=== PATIENT | female | born 1995 | race Two or more races ===

== ENCOUNTER 2018-03-25 16:27 | Emergency (ER) | payer OTHER ==
--- NOTE | 2018-03-25 16:56 | EDPHY ---
H & P Stated Complaint: upper respiratory infection, hurts to breathe Time Seen by Provider: 03/25/18 16:55 HPI/ROS: CHIEF COMPLAINT: URI symptoms x5 days. HISTORY OF PRESENT ILLNESS: [ 22-year-old immunocompetent female with no seasonal influenza vaccination complaining of 5 days of productive cough, fever , sore throat, myalgias, dyspnea, chest pain described as pleuritic and tender to palpation anterior sternal border REVIEW OF SYSTEMS: 10 systems reviewed and negative with the exception of the elements mentioned in the history of present illness PAST MEDICAL & SURGICAL HISTORY: no exogenous estrogen use. SOCIAL HISTORY:Nonsmoker. FAMILY HISTORY: no personal or family history of thrombo embolic disorder, premature coronary disease, sudden unexplained PHYSICAL EXAM (Prior to examination, patient consented to physical exam, hands were washed and my usual and customary physical exam procedures followed) 1) GENERAL: Well-developed, well-nourished, alert and oriented. Appears nontoxic 2) HEAD: Normocephalic, atraumatic 3) HEENT: Pupils equal, round, reactive to light bilaterally. Sclera anicteric. Nasopharynx, oropharynx, clear, no lesions. Moist mucous membranes. No tonsillar enlargement or exudate. Ears bilaterally with normal tympanic membranes. 4) NECK: Full range of motion, no meningeal signs. 5) LUNGS: Clear auscultation bilaterally, no wheezes, no rhonchi, no retractions. 6) HEART: Regular rate and rhythm, no murmur, no heave, no gallop. 7) ABDOMEN: No guarding, no rebound, no focal tenderness, negative McBurney's, negative Watson's, negative Rovsing's, negative peritoneal sign, 8) MUSCULOSKELETAL: Moving all extremities, no focal areas of tenderness, no obvious trauma. No peripheral edema or discoloration. 9) BACK: No CVA tenderness, no midline vertebral tenderness, no fluctuance, no step-off, no obvious trauma, no visual or palpable abnormality. 10) SKIN: No rash, no petechiae. 11) Psychiatric: Patient is oriented X 3, there is no agitation. DIFFERENTIAL DIAGNOSIS: in no particular order including but not limited influenza, pneumonia, bronchitis, pneumothorax - Personal History LMP (Females 10-55): Now Current Tetanus/Diphtheria Vaccine: Yes Current Tetanus Diphtheria and Acellular Pertussis (TDAP): Yes - Medical/Surgical History Hx Asthma: No Hx Chronic Respiratory Disease: No Hx Diabetes: No Hx Cardiac Disease: No Hx Renal Disease: No Hx Cirrhosis: No Hx Alcoholism: No Hx HIV/AIDS: No Hx Splenectomy or Spleen Trauma: No - Social History Smoking Status: Never smoked Constitutional: Initial Vital Signs Temperature (C) 37 C 03/25/18 16:39 Heart Rate 88 03/25/18 16:39 Respiratory Rate 18 03/25/18 16:39 Blood Pressure 104/72 03/25/18 16:39 O2 Sat (%) 97 03/25/18 16:39 O2 Delivery Mode Room Air Allergies/Adverse Reactions: No Known Allergies Allergy (Unverified 03/25/18 16:42) Home Medications: Medication Instructions Recorded Albuterol [Proventil Inhaler HFA 1 - 2 puffs IH Q4PRN PRN #1 mdi 03/25/18 (*)] Azithromycin [Zithromax] 500 mg PO DAILY #1 tablet 03/25/18 Benzonatate [Tessalon Pearles (RX)] 200 mg PO TID PRN #15 cap 03/25/18 Medical Decision Making - Diagnostics Imaging Results: Imaging Impressions Chest X-Ray 03/25/18 17:01 Impression: Perihilar bronchitis/reactive airways' disease, with no focal infiltrate. Images reviewed myself ED Course/Re-evaluation: Re-evaluation with serial exams. Low pretest suspicion for pulmonary embolus, negative perc decision-making tool. Discussed with patient her chest x-ray. She has been symptomatic for several days, beyond treatment window for influenza will therefore hold on testing for influenza. Will administer prescriptions for azithromycin, albuterol, Tessalon. Usual and customary URI precautions and instructions provided. Patient feels comfortable being discharged home. Care of patient under supervision of primary supervising physician Dr Fernandez. Departure - Departure Disposition: Home, Routine, Self-Care Clinical Impression: Upper respiratory infection Qualifiers: URI type: unspecified URI Qualified Code(s): J06.9 - Acute upper respiratory infection, unspecified Condition: Good Instructions: Upper Respiratory Infection (ED) Additional Instructions: Return to the emergency department immediately for change in breathing habits, change in voice, change in swallowing habits, change in mental status, or any other symptoms that concern you. Referrals: [facility],. [Clinic] - 2-3 days, call for appt. Stand Alone Forms: Work Excuse Prescriptions: Albuterol [Proventil Inhaler HFA (*)] 1 - 2 puffs IH Q4PRN PRN #1 mdi PRN Reason: Cough, Moderate Azithromycin [Zithromax] 500 mg PO DAILY #1 tablet Benzonatate [Tessalon Pearles (RX)] 200 mg PO TID PRN #15 cap PRN Reason: Cough, Moderate
[2018-03-25 18:44] VITALS: BP 110/78
== END 2018-03-25 19:05 | disposition home or self-care (01) ==
DX: J06.9 Acute upper respiratory infection, unspecified (principal)